=== PATIENT | female | born 1955 | race Caucasian/White ===

== ENCOUNTER 2017-01-20 10:16 | Day surgery (SDC) | payer BC, SELFPAY ==
[~2017-01-20 10:16] MED LIST: ACCUPRIL20 M1 PO; ACCUPRIL20 MG; ACCUPRIL20 MG PO; ACCUPRIL40 MG; ALBUTEROL17 GM INH; CLINDAMYCIN HC300 M2 PO; IBUPROFEN200 M3 PO; IBUPROFEN400 MG PO; MOTRIN600 MG PO; MUCINEX600 MG; MULTI VITAMIN1 EAC2 PO; NORCO 5/325 TAB1 TAB PO; PROMETRIUM200 MG PO; VICODIN 5/500 T1 TAB PO; VITAMIN D 22000 UNIT PO; VITAMIN D31000 UNI3 PO; ZITHROMAX250MG Z-PAK PO; ZOFRAN ODT4 MG/UDTAB PO
[2017-01-20 10:55] LABS: BASO % 0.2 % (0-2); EOS % 1.6 % (0-7); EOSINOPHIL ABSOLUTE COUNT 0.1 tho/cmm (0.0-0.7); HCT-HEMATOCRIT 45.8 % (34.0-49.0); HGB-HEMOGLOBIN 15.2 gm/dl (12.0-15.5); IMMATURE GRANULOCYTES ABSOLUTE 0.03 tho/cmm (0-0.03); IMMATURE GRANULOCYTES PERCENT 0.3 % (0-0.3); LYMPH % 25.1 % (20-45); LYMPH ABSOLUTE COUNT 2.2 tho/cmm (0.8-4.5); MCH (MEAN CORPUSCULAR HGB) 28.4 pg (28.0-32.0); MCHC MEAN CORPUSCULAR HGB CONC 33.2 % (32.0-36.0); MCV (MEAN CELL VOLUME) 85.4 fl (82.0-96.0); MONO % 5.5 % (0-12); MONOCYTE ABSOLUTE COUNT 0.5 tho/cmm (0.0-1.2); NEUTROPHIL ABSOLUTE COUNT 5.8 tho/cmm (1.6-8.0); NEUTROPHIL-AUTOMATED 5.8 tho/cmm (1.6-8.0); NEUTROPHILS % 67.3 % (40-80); PLATELET COUNT 287 tho/cmm (150-450); RED BLOOD COUNT 5.36 mil/cmm (4.00-5.20); RED CELL DISTRIBUTION WIDTH 13.7 % (12.4-16.4); WHITE BLOOD COUNT 8.7 tho/cmm (4.0-10.0)
[2017-01-20 11:14] LABS: ALB/GLOB RATIO 0.9 (0.8-2.0); ALBUMIN 3.8 g/dl (3.5-5.0); ALKALINE PHOSPHATASE 95 U/L (33-138); ALT/SGPT 24 U/L (12-78); ANION GAP 12 mmol/L (0-20); BLOOD UREA NITROGEN 16 mg/dl (6-24); CALCIUM 8.8 mg/dl (8.5-10.5); CARBON DIOXIDE-VENOUS 29 mmol/L (22-32); CHLORIDE 105 mmol/l (96-110); CREATININE 0.78 mg/dl (0.50-1.10); GLUCOSE 103 mg/dL (70-110); POTASSIUM 4.3 mmol/L (3.7-5.1); SODIUM 142 mmol/L (135-145); eGFR VALUE FOR BLACK >90 mL/Min
[2017-01-20 11:15] LABS: AST/SGOT 13 U/L (10-40)
[2017-01-20 11:58] LABS: URINE APPEARANCE CLEAR; URINE COLOR YELLOW; URINE GLUCOSE (UA) NEGATIVE (NEG); URINE LEUKOCYTE ESTERASE NEGATIVE (NEG); URINE PROT SULFOSALICYLIC ACID NEGATIVE (NEG); URINE PROTEIN NEGATIVE (NEG)
[2017-01-20 11:59] LABS: URINE BILIRUBIN NEGATIVE (NEG); URINE BLOOD NEGATIVE (NEG); URINE KETONE NEGATIVE (NEG); URINE NITRITE NEGATIVE (NEG)
[2017-01-21 08:15] LABS: BASO % 0.1 % (0-2); EOS % 0.1 % (0-7); HCT-HEMATOCRIT 38.1 % (34.0-49.0); HGB-HEMOGLOBIN 12.6 gm/dl (12.0-15.5); IMMATURE GRANULOCYTES ABSOLUTE 0.03 tho/cmm (0-0.03); IMMATURE GRANULOCYTES PERCENT 0.2 % (0-0.3); LYMPH % 13.6 % (20-45); LYMPH ABSOLUTE COUNT 1.9 tho/cmm (0.8-4.5); MCH (MEAN CORPUSCULAR HGB) 28.4 pg (28.0-32.0); MCHC MEAN CORPUSCULAR HGB CONC 33.1 % (32.0-36.0); MEAN PLATELET VOLUME 9.8 cmc (9.4-12.4); MONO % 7.7 % (0-12); MONOCYTE ABSOLUTE COUNT 1.1 tho/cmm (0.0-1.2); NEUTROPHIL ABSOLUTE COUNT 10.6 tho/cmm (1.6-8.0); NEUTROPHIL-AUTOMATED 10.6 tho/cmm (1.6-8.0); NEUTROPHILS % 78.3 % (40-80); PLATELET COUNT 280 tho/cmm (150-450); RED BLOOD COUNT 4.43 mil/cmm (4.00-5.20); RED CELL DISTRIBUTION WIDTH 13.6 % (12.4-16.4)
[2017-01-21 08:17] LABS: WHITE BLOOD COUNT 13.6 tho/cmm (4.0-10.0)
--- NOTE | 2017-01-22 01:57 | NUR ---
PATIENT UNABLE TO VOID. BLADDER SCANNED AT 2250 FOR 573 CC. URRUTIA CATHETER ATTEMPTED X 2 BY THIS RN, WITH NO SUCCESS. L&D CHARGE NURSE ATTEMPTS X 1, WITH NO SUCCESS. RIPSAW GRADER NOTIFIED. CCU CHARGE NURSE & RIPSAW GRADER ATTEMPT X 2, WITH NO SUCCESS. DR SERRATO NOTIFIED, AND GIVES OK TO CONSULT UROLOGY TECH. UROLOGY TECH CALLED IN FROM HOME. URRUTIA CATHETER PLACED. 1100 CC DRAINED INTO CATHETER BAG.
[2017-01-22] MEDS ORDERED: IBUPROFEN800 M1 PO (02:21)
[2017-01-22] MEDS ORDERED: PERCOCET 5-3251 EACH PO (02:22)
[2017-01-22] MEDS ORDERED: MACROBID 100 M100 M1 PO (14:20)
== END 2017-01-22 15:55 ==
LOC: SHSB 10:16 → ORW 12:24 → PACU 16:42 → OBGE 18:25
PROVIDERS: Obstetrics & Gynecology
PROC: 0UT94ZZ Resection of Uterus, Percutaneous Endoscopic Approach (ICD-10-PCS; principal; 2017-01-20)
PROC: 0UTC4ZZ Resection of Cervix, Percutaneous Endoscopic Approach (ICD-10-PCS; 2017-01-20)
PROC: 0UT24ZZ Resection of Bilateral Ovaries, Percutaneous Endoscopic Approach (ICD-10-PCS; 2017-01-20)
PROC: 0UT74ZZ Resection of Bilateral Fallopian Tubes, Percutaneous Endoscopic Approach (ICD-10-PCS; 2017-01-20)
PROC: 0TSD0ZZ Reposition Urethra, Open Approach (ICD-10-PCS; 2017-01-20)
PROC: 0JQC0ZZ Repair Pelvic Region Subcutaneous Tissue and Fascia, Open Approach (ICD-10-PCS; 2017-01-20)
PROC: 0JQC0ZZ Repair Pelvic Region Subcutaneous Tissue and Fascia, Open Approach (ICD-10-PCS; 2017-01-20)
DX: N81.10 Cystocele, unspecified (principal); N81.6 Rectocele; N28.89 Other specified disorders of kidney and ureter; N83.312 Acquired atrophy of left ovary; N83.311 Acquired atrophy of right ovary; N84.0 Polyp of corpus uteri; N80.0 Endometriosis of uterus; D25.1 Intramural leiomyoma of uterus; I10 Essential (primary) hypertension; E66.01 Morbid (severe) obesity due to excess calories; M19.90 Unspecified osteoarthritis, unspecified site; K21.9 Gastro-esophageal reflux disease without esophagitis; Z79.899 Other long term (current) drug therapy; Z88.1 Allergy status to other antibiotic agents; Z87.442 Personal history of urinary calculi; Z87.440 Personal history of urinary (tract) infections; Z90.49 Acquired absence of other specified parts of digestive tract; Z98.890 Other specified postprocedural states
CPT/HCPCS: C1771; J0690; J1940; J2270; J2405; J2550; J3010; J7030; J7121